=== PATIENT | female | born 1990 | race Caucasian/White ===

== ENCOUNTER 2016-11-09 01:13 | Emergency (ER) ==
[2016-11-09 01:44] LABS: URINE MICRO REVIEW NEEDED? NO; URINE SOURCE CLEAN CATCH
[2016-11-09 01:58] LABS: BILIRUBIN URINE NEGATIVE (NEGATIVE); BLOOD URINE NEGATIVE (NEGATIVE); COLOR YELLOW; GLUCOSE URINE NEGATIVE (NEGATIVE); LEUKOCYTES URINE NEGATIVE (NEGATIVE); NITRITE URINE NEGATIVE (NEGATIVE); PROTEIN URINE TRACE mg/dL (NEGATIVE); SP GRAVITY URINE 1.022; TURBIDITY URINE CLEAR (CLEAR); UROBILINOGEN URINE NORMAL (NORMAL)
[2016-11-09 02:00] LABS: UR EPITHELIAL CELLS <10 /HPF (<10); URINE BACTERIA 2+ /HPF; URINE CULTURE NEEDED? YES; URINE RBC <10 /HPF (<10)
[2016-11-09 02:02] LABS: HEMATOCRIT 43.4 % (37.0-47.0); HEMOGLOBIN 15.3 g/dL (12.0-16.0); MCH 30.7 PG (27-31); MCHC 35.3 g/dL (33-37); MCV 87.1 FL (81-99); RBC 4.98 XMIL (4.2-5.4)
[2016-11-09 02:03] LABS: BASO% 0.1 % (0.0-0.8); EOS# 0.17 X1000 (0.0-0.7); EOS% 0.9 % (0.0-10.0); IMM GRAN# 0.06 X1000 (0.0-0.04); IMM GRAN% 0.3 % (0.0-0.5); LYMPH# 0.45 X1000 (1.2-3.4); LYMPH% 2.5 % (20.5-51.1); MANUAL DIFF NEEDED? NO; MONO# 1.47 X1000 (0.11-0.59); MONO% 8.2 % (1.7-9.3); MPV 9.6 FL (7.4-10.4); PLT 334 X1000 (130-400)
[2016-11-09] MEDS ORDERED: ZOFRAN IV ONE (02:19)
[2016-11-09] MEDS ORDERED: NS 1,000 ML IV ONE (02:19)
[2016-11-09] MEDS ORDERED: MORPHINE IV ONE (02:19)
[2016-11-09 02:25] LABS: AGAP 18; ALBUMIN 4.6 g/dL (3.5-5.0); ALKALINE PHOSPHATASE 62 U/L (32-104); AMYLASE 65 U/L (20-200); BUN 12 mg/dL (8-22); CALCIUM 9.9 mg/dL (8.8-10.2); CHLORIDE 97 mmol/L (98-107); COSMO 278; GOT 22 U/L (10-30); GPT 20 U/L (10-36); LIPASE 25 U/L (13-60); POTASSIUM 3.7 mmol/L (3.5-5.1); SODIUM 138 mmol/L (136-145); TCO2 23 mmol/L (25-35); TOTAL BILIRUBIN 1.29 mg/dL (0.20-1.00); TOTAL PROTEIN 7.3 g/dL (6.3-8.3)
--- NOTE | 2016-11-09 02:26 | PROVIDER DOCUMENTATION ---
HPI-Abdominal Pain/GI Problem - General Source: patient - History of Present Illness-ABD Abdominal Pain Onset Location: reports: generalized abdomen Pain Radiation: reports: no radiation Quality of Pain: reports: cramping Severity in ED: reports: mild Onset/Duration: reports: 24 hours ago Timing: reports: still present Activities at Onset: reports: none Associated Symptoms: reports: diarrhea, nausea, vomiting # of Diarrhea Episodes: 10 # of Vomiting Episodes: 20 Bruising or Bleeding Gums?: No Similar Symptoms Previously?: No Recently seen or treated by another doctor?: No <Lesa Breen - Last Filed: 11/09/16 02:20> <Guillermo Vences - Last Filed: 11/09/16 03:35> - General Chief Complaint: N/V/D Stated Complaint: V/D Time Seen by Provider: 11/09/16 02:12 Allergies/Adverse Reactions: Patient Allergies Allergy/AdvReac Type Severity Reaction Status Date / Time Penicillins Allergy Mild RASH Verified 11/09/16 02:53 - History of Present Illness-ABD Nature of Presenting Problems: 26 year F presents to the ED with a cc of nausea, vomiting, and diarrhea with an onset of 24 hours ago. PT c/o ABD cramping just prior to vomiting. (Lesa Breen) Review of Systems - Adult - REVIEW OF SYSTEMS - ADULT Constitutional: denies: chills, fever Eyes: reports: no symptoms reported Ears, Nose, Mouth & Throat: reports: no symptoms reported Cardiovascular: denies: chest pain, palpitations Respiratory: denies: cough, shortness of breath Gastrointestinal: reports: abdominal pain, diarrhea, nausea, vomiting Genitourinary: denies: dysuria, hematuria Musculoskeletal: denies: bone pain, muscle aches Integumentary: denies: skin sores/ulcer, skin thickening Neurological: reports: no symptoms reported Psychiatric: reports: no symptoms reported Endocrine: reports: no symptoms reported Hematologic/Lymphatic: reports: no symptoms reported Allergic/Immunologic: reports: no symptoms reported All Other Systems: Reviewed and Negative <Lesa Breen - Last Filed: 11/09/16 02:20> Past History - Adult - PAST MEDICAL HISTORY-ADULT Review of Records: reports: Nursing Assessment Review, Medications Reviewed Major Childhood Illnesses: reports: denies history - PRIOR SURGERIES/PROCEDURES Surgical/Procedure History: reports: none - IMMUNIZATION STATUS Childhood Immunizations: See Nurse Assessment Flu Vaccine: See Nurse Assessment - SOCIAL HISTORY Smoking: non-smoker Substance Use: none/never Alcohol Use Frequency: never <JamshidLesa vaughn - Last Filed: 11/09/16 02:20> Physical Exam-General - PHYSICAL EXAM-ADULT Initial Vital Signs Reviewed: Yes - CONSTITUTIONAL General Appearance: appears well, alert, no apparent distress - RESPIRATORY Respiratory: chest non-tender, lungs clear, normal breath sounds - CARDIOVASCULAR Cardiovascular: normal peripheral pulses, regular rate, rhythm, no edema - GASTROINTESTINAL (ABDOMEN) Abdominal Exam: normal bowel sounds, non tender, soft - MUSCULOSKELETAL Extremity: normal inspection - SKIN Integumentary: other (pale) - PSYCHIATRIC Psych/Mental Status: normal mood/affect, normal thought content, normal thought process, oriented x 3 <Lesa Breen - Last Filed: 11/09/16 02:20> Progress <Lesa Breen - Last Filed: 11/09/16 02:20> - REASSESSMENT Reassessment #1 Time Reassessed: 03:34 (pt drinking easily and feels much better) Status: improving <Guillermo Vences - Last Filed: 11/09/16 03:35> - PLAN OF CARE/RESULTS Progress/Plan/Lab Results: Laboratory Tests 11/09/16 11/09/16 11/09/16 01:28 01:28 01:43 WBC 17.95 H RBC 4.98 Hgb 15.3 Hct 43.4 MCV 87.1 MCH 30.7 MCHC 35.3 RDW Std Deviation 11.8 Plt Count 334 MPV 9.6 Immature Gran % (Auto) 0.3 Neut % (Auto) 88.0 H Lymph % (Auto) 2.5 L [place] % (Auto) 8.2 Eos % (Auto) 0.9 Baso % (Auto) 0.1 Immature Gran # (Auto) 0.06 H Neut # (Auto) 15.78 H Lymph # (Auto) 0.45 L [place] # (Auto) 1.47 H Eos # (Auto) 0.17 Baso # (Auto) 0.02 Sodium 138 Potassium 3.7 Chloride 97 L Carbon Dioxide 23 L Anion Gap 18 BUN 12 Creatinine 0.9 Estimated GFR/1.73 m2 > 60 BUN/Creatinine Ratio 13 Glucose 153 H Calculated Osmolality 278 Calcium 9.9 Total Bilirubin 1.29 H AST 22 ALT 20 Alkaline Phosphatase 62 Total Protein 7.3 Albumin 4.6 Globulin 2.7 Albumin/Globulin Ratio 1.7 Amylase 65 Lipase 25 Urine Source CLEAN CATCH Urine Color YELLOW Urine Turbidity CLEAR Urine pH 8.0 Ur Specific Magna 1.022 Urine Protein TRACE A Ur Glucose (Stick) NEGATIVE Ur Ketones (Stick) TRACE A Urine Blood NEGATIVE Urine Nitrite NEGATIVE Urine Bilirubin NEGATIVE Urobilinogen Dipstick NORMAL Urine Leukocytes NEGATIVE Urine WBC (Auto) 10-20 A Urine RBC (Auto) <10 U Epithel Cells (Auto) <10 Urine Bacteria (Auto) 2+ Orders Category Date Time Status NPO Diet 11/09/16 01:31 Active AMYLASE [CHEM] Stat Lab 11/09/16 01:28 Completed CBC WITH ELECTRONIC DIFF [HEME] Stat Lab 11/09/16 01:28 Completed COMPREHENSIVE METABOLIC PANEL [CHEM] Stat Lab 11/09/16 01:28 Completed LIPASE [CHEM] Stat Lab 11/09/16 01:28 Completed URINALYSIS W/POSS RFLX CULT [URINALYSIS] Stat Lab 11/09/16 01:43 Completed URINE CULTURE [RM] Routine Lab 11/09/16 02:13 Received 0.9% Sodium Chloride Inj [Ns] 1,000 ml Med 11/09/16 02:19 Discontinued IV 999 mls/hr Morphine Med 11/09/16 02:19 Discontinued 4 mg IV NOW ONE Ondansetron [Zofran] Med 11/09/16 02:19 Discontinued 8 mg IV NOW ONE Vital Signs Temp Pulse Resp BP Pulse Ox 11/09/16 01:17 98.2 F 128 H 20 121/64 100 Penicillins Allergy (Mild, Verified 11/09/16 02:53) RASH No Home Medications 11/09/16 Dietary Diet NPO Start MonNov 09 130 I&O 11/07/16 11/08/16 11/09/16 06:59 06:59 06:59 Output Total 90 Balance -90 Laboratory 11/09/16 11/09/16 11/09/16 01:43 01:28 01:28 WBC 17.95 H RBC 4.98 Hgb 15.3 Hct 43.4 MCV 87.1 MCH 30.7 MCHC 35.3 RDW Std Deviation 11.8 Plt Count 334 MPV 9.6 Immature Gran % (Auto) 0.3 Neut % (Auto) 88.0 H Lymph % (Auto) 2.5 L [place] % (Auto) 8.2 Eos % (Auto) 0.9 Baso % (Auto) 0.1 Immature Gran # (Auto) 0.06 H Neut # (Auto) 15.78 H Lymph # (Auto) 0.45 L [place] # (Auto) 1.47 H Eos # (Auto) 0.17 Baso # (Auto) 0.02 Sodium 138 Potassium 3.7 Chloride 97 L Carbon Dioxide 23 L Anion Gap 18 BUN 12 Creatinine 0.9 Estimated GFR/1.73 m2 > 60 BUN/Creatinine Ratio 13 Glucose 153 H Calculated Osmolality 278 Calcium 9.9 Total Bilirubin 1.29 H AST 22 ALT 20 Alkaline Phosphatase 62 Total Protein 7.3 Albumin 4.6 Globulin 2.7 Albumin/Globulin Ratio 1.7 Amylase 65 Lipase 25 Urine Source CLEAN CATCH Urine Color YELLOW Urine Turbidity CLEAR Urine pH 8.0 Ur Specific Magn[place] 1.022 Urine Protein TRACE A Ur Glucose (Stick) NEGATIVE Ur Ketones (Stick) TRACE A Urine Blood NEGATIVE Urine Nitrite NEGATIVE Urine Bilirubin NEGATIVE Urobilinogen Dipstick NORMAL Urine Leukocytes NEGATIVE Urine WBC (Auto) 10-20 A Urine RBC (Auto) <10 U Epithel Cells (Auto) <10 Urine Bacteria (Auto) 2+ (Guillermo Vences) Departure <Lesa Breen - Last Filed: 11/09/16 02:20> - Departure Time of Disposition Order: 03:34 Certified Medical Emergency: Emergent <Guillermo Vences - Last Filed: 11/09/16 03:35> - Departure DIAGNOSIS: Gastroenteritis Disposition: HOME 01 Condition: Fair Prescriptions: Diphenoxylate/Atropine [Lomotil] 1 each PO 4XDAY PRN PRN #20 tablet PRN Reason: Diarrhea Ondansetron [Zofran Odt] 8 mg PO Q8H PRN #20 tab.rapdis Attestation - Scribe Verification/Attestation Scribe:: Lesa Breen Acting as Scribe for:: Guillermo Vences Scribe documention review:: This chart was documented by a scribe and accurately reflects the service the provider performed and the decisions made by the provider. <Lesa Breen - Last Filed: 11/09/16 02:20> Physician Attestation - Physician Attestation I, the provider, attest to the following statement:: Guillermo Vences Physician documentation Attestation:: This documentation recorded by the scribe accurately reflects the service I personally performed and the decisions made by me. <Lesa Breen - Last Filed: 11/09/16 02:20>
[2016-11-09 04:01] VITALS: BP 109/64
== END 2016-11-09 04:02 | disposition home or self-care (01) ==
LOC: ED 01:13
DX: K52.9 Noninfective gastroenteritis and colitis, unspecified (principal); R10.84 Generalized abdominal pain; R19.7 Diarrhea, unspecified; R11.2 Nausea with vomiting, unspecified
CPT/HCPCS: 36415; 80053; 81001; 82150; 83690; 85025; 87077; 87088; 87186; 96374; J2270; J2405; J7030